=== PATIENT | female | born 1980 | race Caucasian/White ===

== ENCOUNTER 2017-08-23 11:46 | Emergency (ER) | END 2017-08-23 12:53 | disposition home or self-care (01) ==

== ENCOUNTER 2018-06-27 18:45 | Inpatient (IN) | payer MEDICAID ==
[~2018-06-27] VITALS: Ht 170.2 cm; Wt 97.0 kg
[~2018-06-27 18:45] MED LIST: CIPR500T4 PO; PREN1TAB49
[2018-06-27 19:46] VITALS: BP 108/67; PULSE 81; RESP 18
[2018-06-27 19:48] VITALS: Ht 170.2 cm; Wt 97.0 kg
[2018-06-27] MEDS ORDERED: URSO300C21 PO (19:54)
[2018-06-27] MEDS ORDERED: DIPH25CA42 PO (19:55)
[2018-06-27] MEDS ORDERED: ACETAMINOPHEN 325 MG TAB PO PRN (20:30)
[2018-06-27] MEDS ORDERED: HYDROCORTISONE 1% 28.35 GM OINT TOP PRN (20:30)
--- NOTE | 2018-06-27 21:05 | PREOPHP ---
DATE OF ADMISSION: 06/27/2018 HISTORY OF PRESENT ILLNESS: Ms. Brooke Adams is a 38-year-old 4, para 3, EDC 07/28/2018 intrauterine at 35 weeks and 4 days gestational age, [facility] delivered at 36 weeks secondary to cholestasis of . Currently, the patient has m ild generalized itching. She declines any nausea, vomiting, shortness of breath, visual change, or e pigastric pain. Her vital signs are stable. Her care took place at [facility]. PAST MEDICAL HISTORY: None. MEDICATIONS: vitamins, Actigall, Benadryl, hydrocortisone cream 1%. PAST SURGICAL HISTORY: None. OBSTETRIC HISTORY: x3 vaginal deliveries. GYNECOLOGIC HISTORY: 12, regular 3 to 4 days. Denies any sexually transmitted infections. Sexually active with 1 partner. SOCIAL HISTORY: Denies any smoking, drugs or alcohol. FAMILY HISTORY: None. REVIEW OF SYSTEMS: All within normal except for history of present illness. PHYSICAL EXAMINATION: HEENT: Within normal. LUNGS: CTA bilateral. CARDIOVASCULAR: S1, S2, regular rhythm. ABDOMEN: Gravid, nontender. Negative CVA bilateral. EXTREMITIES: Negative edema. No calf tenderness. PELVIC: Vaginal exam deferred. heart tracing category 1. SIGNIFICANT LABORATORIES: Total bile acids 267.8, result from 06/25/2018. ASSESSMENT: Intrauterine at 35 weeks and 4 days gestational age with cholestasis of pregna ncy. PLAN: The patient's evaluation was discussed with Dr. Jo, who recommended delivery at 36 weeks an d continuous monitoring inhouse until delivery. Plan is to give a steroid treatment for lung maturity, continue Actigall, biophysical profile, EFW and presentation. Dictated By: ROMULO ESPINO/DAMIEN Conf#: [id number] DID#: [id number]
[2018-06-27] MEDS: BETAMET NA PHOS/AC(6 MG/ML) 2 ML INJ SYG IM SCH (22:00)
[2018-06-27] MEDS: LACTATED RINGER'S 1,000 ML IV SCH (22:31)
[2018-06-27] MEDS: URSODIOL 300 MG CAP PO SCH (23:33)
[2018-06-27] MEDS: DIPHENHYDRAMINE 25 MG CAP PO SCH (23:55)
[2018-06-28] MEDS: LACTATED RINGER'S 1,000 ML IV SCH ×3 (03:13→21:08)
--- NOTE | 2018-06-28 05:29 | CONS ---
DATE OF ADMISSION: 06/27/2018 DATE OF CONSULTATION: 06/27/2018 I was notified by Dr. Pena around 5:00 about this patient. She was 35 weeks and 4 days on 06/27 and her bile acids have just been resulted with the total bile acid of 267. He mentioned liver function tests are normal and apparently the bile acids have been done fasting. This is a very, arminda y high level of bile acid. I do recommend in-house management and continue with the Actigall. Alonso nuous heart tone monitoring. Delivery at 36 weeks unless there is any evidence of nonreassurin g heart tone. The reason for delivery at 36 weeks is that also severe cholestasis, which incre ases the risk of intrauterine demise. Dictated By: BRENDAN ALEXIS MD ST/NTS Conf#: [id number] DID#: [id number] CC: ROMULO PENA MD;*EndCC*
[2018-06-28] MEDS: DIPHENHYDRAMINE 25 MG CAP PO SCH ×3 (05:56→17:49)
[2018-06-28] MEDS: PRENATAL VITAMIN PO SCH (08:18)
[2018-06-28] MEDS: FERROUS SULFATE (EC) 325 MG TAB PO SCH (08:18)
[2018-06-28] MEDS: URSODIOL 300 MG CAP PO SCH ×3 (08:18→21:07)
[2018-06-28] MEDS: BETAMET NA PHOS/AC(6 MG/ML) 2 ML INJ SYG IM SCH (22:21)
[2018-06-29] MEDS: DIPHENHYDRAMINE 25 MG CAP PO SCH ×5 (00:09→23:49)
[2018-06-29] MEDS: LACTATED RINGER'S 1,000 ML IV SCH ×3 (05:13→22:01)
[2018-06-29] MEDS: FERROUS SULFATE (EC) 325 MG TAB PO SCH (08:58)
[2018-06-29] MEDS: URSODIOL 300 MG CAP PO SCH ×3 (08:58→22:00)
[2018-06-29] MEDS: PRENATAL VITAMIN PO SCH (08:58)
[2018-06-30] MEDS: DIPHENHYDRAMINE 25 MG CAP PO SCH ×3 (05:57→19:31)
[2018-06-30] MEDS: LACTATED RINGER'S 1,000 ML IV SCH ×2 (05:58→15:24)
[2018-06-30] MEDS ORDERED: OXYTOCIN 30 UNITS/LR 500 ML BAG IV ONE (07:00)
[2018-06-30] MEDS: PRENATAL VITAMIN PO SCH (07:53)
[2018-06-30] MEDS: URSODIOL 300 MG CAP PO SCH ×3 (07:53→22:09)
[2018-06-30] MEDS: FERROUS SULFATE (EC) 325 MG TAB PO SCH (07:54)
[2018-06-30] MEDS ORDERED: OXYTOCIN 30 UNITS/LR 500 ML IV PRN ×2 (09:00→20:00)
[2018-06-30] MEDS ORDERED: MISOPROSTOL 200 MCG TAB PR PRN ×2 (09:00→20:00)
[2018-06-30] MEDS ORDERED: METHYLERGONOVINE 0.2 MG INJ IM PRN ×2 (09:00→20:00)
[2018-06-30] MEDS ORDERED: MISOPROSTOL 50 MCG CAPSULE PO SCH (09:00)
[2018-06-30] MEDS ORDERED: CARBOPROST 250 MCG INJ IM PRN ×2 (09:00→20:00)
[2018-06-30] MEDS ORDERED: OXYTOCIN 30 UNITS/LR 500 ML IV SCH ×2 (09:00)
[2018-06-30] MEDS ORDERED: LIDOCAINE 1% (MPF) 30 ML INJ INJ PRN (09:00)
[2018-06-30] MEDS ORDERED: BUTORPHANOL 2 MG INJ IV PRN (09:00)
[2018-06-30] MEDS ORDERED: IBUPROFEN 600 MG TAB PO PRN (09:00)
--- NOTE | 2018-06-30 10:15 | QN ---
Documentation Comment patient seen and evaluated no complaints vs stable afebrile ab soft nt gravid extremity no edema no calf tenderness fhr cat 1 sono: transverse lie a/Intrauterine at 36 weeks and days gestational age with cholestasis of , malpresentation p/ keep patient npo schedule for CD today ROMULO PENA MD Jun 30, 2018 10:15
[2018-06-30] MEDS ORDERED: CEFAZOLIN 2 GM/50 ML (PMX) 50 ML IVPB ONE (11:30)
--- NOTE | 2018-06-30 17:40 | PREAC ---
Date/Time of Note Date/Time of Note DATE: 06/30/18 TIME: 17:38 Anesthesia Eval and Record Evaluation Time Pre-Procedure Interview DATE: 06/30/18 TIME: 17:38 Age 38 Sex female NPO: 8 hrs Preoperative diagnosis IUP Planned procedure Csection Past Medical History Past Medical History: None Surgery & Anesthesia Issues No known issue Meds Anticoagulation: No Beta Ninoska within 24 hr: No Reason Beta Ninoska not given: Pt. not on B-Ninoska Active Scripts Ciprofloxacin Hcl* (Ciprofloxacin Hcl*) 500 Mg Tablet, 500 MG PO BID for 10 Days, TAB Prov:RK FREEMAN PA-C 08/23/17 Reported Medications Diphenhydramine Hcl (Banophen) 25 Mg Capsule, 25 MG PO Q6 for itching, CAP 06/27/18 Ursodiol* (Actigall*) 300 Mg Cap, 300 MG PO TID, #90 CAP 06/27/18 Vits W-Ca,Fe,Fa(<1MG) () 1 Tab Tablet 12/15/09 Current Medications Lactated Ringer's 1,000 ml @ 125 mls/hr Q8H IV Last administered on 06/30/18at 15:24; Admin Dose 125 MLS/HR; Start 06/27/18 at 20:24 Prenat Multivit/ Callisthenics Instructor/Iron/Folic Ac () 1 tab DAILY PO Last administered on 06/30/18at 07:53; Admin Dose 1 TAB; Start 06/28/18 at 09:00 Ferrous Sulfate (Ferrous Sulfate (Ec)) 325 mg DAILY PO Last administered on 06/30/18at 07:54; Admin Dose 325 MG; Start 06/28/18 at 09:00 Acetaminophen (Tylenol Tab) 650 mg Q4H PRN PO .PAIN OR TEMP; Start 06/27/18 at 20:30 Diphenhydramine HCl (Benadryl) 25 mg Q6 PO Last administered on 06/30/18at 05:57; Admin Dose 25 MG; Start 06/28/18 at 00:00 Ursodiol (Actigall) 300 mg TID PO Last administered on 06/30/18at 07:53; Admin Dose 300 MG; Start 06/27/18 at 22:00 Hydrocortisone (Hydrocortisone 1% Oint) 1 applic Q4 PRN TOP ITCHING Last administered on 06/27/18at 23:34; Admin Dose 1 APPLIC; Start 06/27/18 at 20:30 Butorphanol Tartrate (Stadol) 2 mg Q2H PRN IV .PAIN; Start 06/30/18 at 09:00 Lidocaine (Xylocaine 1% (Mpf)) 30 ml ONCE PRN INJ .EPISIOTOMY; Start 06/30/18 at 09:00 Oxytocin/Lactated Ringer's 500 ml @ 500 mls/hr ONCE POST IV ; Start 06/16 08/03 at 09:00 Oxytocin/Lactated Ringer's 500 ml @ 125 mls/hr POST IV ; Start 06/30/18 at 09:00 Ibuprofen (Motrin) 600 mg ONCE PRN PO .PAIN 1-5; Start 06/30/18 at 09:00 Oxytocin/Lactated Ringer's 500 ml @ 0 mls/hr ONCE PRN IV .VAGINAL BLEEDING; Start 06/30/18 at 09:00 Methylergonovine Maleate (Methergine) 0.2 mg ONCE PRN IM .VAGINAL BLEEDING; Start 06/30/18 at 09:00 Carboprost Tromethamine (Hemabate) 250 mcg ONCE PRN IM .VAGINAL BLEEDING; Start 06/30/18 at 09:00 Misoprostol (Cytotec) 1,000 mcg ONCE PRN NH .VAGINAL BLEEDING; Start 06/30/18 at 09:00 Meds reviewed: Yes Allergies Coded Allergies: No Known Allergy (Unverified , 06/29/18) Allergies Reviewed: Yes Labs/Studies Labs Reviewed: Reviewed by anesthesiologist Result Diagram: 06/30/18 1042 06/30/18 1042 Laboratory Tests 06/30/18 10:42 Blood Bank Test 06/30/18 10:39 Antibody Screen NEGATIVE Blood Type A POSITIVE Rh Immune Globulin Candidate NO test: Positive Studies: ECG Pre-procedure Exam Last vitals Vital Signs Date Temp Pulse Resp B/P (MAP) Pulse Ox O2 O2 Flow FiO2 Time Delivery Rate 06/27/18 99.1 81 18 108/67 Room Air 19:46 (81) Airway: Adequate mouth opening, Adequate thyromental dist Mallampati: Mallampati II Teeth: Normal Lung: Normal Heart: Normal ASA Physical Status ASA physical status: 2 Emergency: None Planned Anesthetic Neuraxial: Spinal Planned Pain Management Sub-arachniod narcotics, Parenteral pain med Pre-operative Attestations Prior to commencing anesthesia and surgery, the patient was re-evaluated, there was verification of: *The patient's identity *The results of appropriate recent lab work and preoperative vital signs *The above evaluation not changing prior to induction *Anesthetic plan, risk benefits, alternative and complications discussed with patient/family; questions answered; patient/family understands, accepts and wishes to proceed. BONI TAFOYA MD Jun 30, 2018 17:40
[2018-06-30] MEDS ORDERED: PHENYLephrine 10 MG INJ ONE (17:42)
[2018-06-30] MEDS ORDERED: OXYTOCIN 10 UNIT INJ ONE (17:42)
[2018-06-30] MEDS ORDERED: ONDANSETRON 4 MG INJ ONE ×2 (17:42→18:24)
[2018-06-30] MEDS ORDERED: morphine SULFATE/PF (10 MG/10 ML) INJ ONE (17:42)
--- NOTE | 2018-06-30 17:43 | HPN ---
Date/Time of Note Date/Time of Note DATE: 06/30/18 TIME: 17:42 Interval H&P Admission Note Pt. seen H&P reviewed: Systems changes noted below Intrauterine at 36 weeks and days gestational age with cholestasis of , malpresentation, desire CD with btl r/b/a explained all question answered ROMULO PENA MD Jun 30, 2018 17:42
--- NOTE | 2018-06-30 18:38 | OPPN ---
Date/Time of Note Date/Time of Note DATE: 06/30/18 TIME: 18:35 Operative Report Planned Procedure Procedure date Jun 30, 2018 Procedure(s) primary low transverse CD, wit bilateral tubal salpingectomy Performed by see signature line Facility Designer: VIKASH HOLLAND M.D. 2nd Facility Designer none Anesthesiologist: BONI TAFOYA MD Pre-procedure diagnosis Intrauterine at 36 weeks and days gestational age with cholestasis of , malpresentation, desire CD with btl [id number] Anesthesia Type: Xjfur5c spinal Post-Procedure Post-procedure diagnosis same Findings a viable male 8/9 weight 2,745 grams, transverse presentation (head towards left, back up), normal uterus tubes and ovaries Estimated Blood Loss: 500 - 600 mls (500) Specimen(s) left and right fallopian tubes Grafts/Implant(s) none Complication(s) none ROMULO PENA MD Jun 30, 2018 18:38
[2018-06-30] MEDS ORDERED: morphine 2 MG INJ IV PRN (19:00)
[2018-06-30] MEDS ORDERED: ONDANSETRON 4 MG INJ IV PRN (19:00)
[2018-06-30] MEDS ORDERED: DIPHENHYDRAMINE 50 MG INJ IV PRN (19:00)
[2018-06-30] MEDS ORDERED: KETOROLAC 30 MG INJ IV PRN (19:00)
[2018-06-30] MEDS ORDERED: NALOXONE (0.4 MG/ML) INJ IV PRN (19:00)
--- NOTE | 2018-06-30 19:00 | PAC ---
Date/Time of Note Date/Time of Note DATE: 06/30/18 TIME: 19:00 Post-Anesthesia Notes Post-Anesthesia Note Last documented vital signs Vital Signs Date Temp Pulse Resp B/P (MAP) Pulse Ox O2 O2 Flow FiO2 Time Delivery Rate 06/27/18 99.1 81 18 108/67 Room Air 19:46 (81) Activity: WNL Respiratory function: WNL Cardiovascular function: WNL Mental status: Baseline Pain reasonably controlled: Yes Hydration appropriate: Yes Nausea/Vomiting absent: Yes Comments BP:122/56, P:88, Spo2:100%, T:98,8 BONI TAFOYA MD Jun 30, 2018 19:00
[2018-06-30] MEDS ORDERED: LANOLIN HPA 1 PKT TOP PRN (20:00)
[2018-06-30] MEDS ORDERED: OXYCODONE/ACETAMINOPHEN (5/325) TAB PO PRN (20:00)
[2018-06-30] MEDS ORDERED: NACL 0.9% 3 ML SYG IV SCH (20:00)
[2018-06-30 21:10] VITALS: BP 116/56; PULSE 98; RESP 18
[2018-06-30] MEDS: OXYTOCIN 30 UNITS/LR 500 ML IV SCH (22:09)
[2018-07-01] MEDS: OXYTOCIN 30 UNITS/LR 500 ML IV SCH (00:04)
[2018-07-01] MEDS: CEFAZOLIN 2 GM/50 ML (PMX) 50 ML IVPB SCH ×3 (01:57→17:52)
[2018-07-01 03:50] VITALS: BP 102/59; PULSE 59; RESP 17
[2018-07-01] MEDS: IBUPROFEN 600 MG TAB PO SCH ×5 (05:08→23:53)
[2018-07-01 08:00] VITALS: BP 104/66; PULSE 82; RESP 18
[2018-07-01] MEDS: URSODIOL 300 MG CAP PO SCH ×3 (09:07→20:55)
--- NOTE | 2018-07-01 11:04 | QN ---
Documentation Comment progress note pod 1 patient seen and evaluated no complaints cunha clear vs stable afebrile ab dressing clean/ dry no distention nt extremity no edema no calf tenderness a sp cd with btl pod 1 stable afebrile p/ iron supplement encourage ambulation ROMULO PENA MD Jul 01, 2018 11:04
[2018-07-01 12:15] VITALS: BP 110/70; PULSE 68; RESP 18
[2018-07-01] MEDS: LACTATED RINGER'S 1,000 ML IV SCH ×3 (12:24→22:30)
--- NOTE | 2018-07-01 14:56 | OPR ---
DATE OF OPERATION: 06/30/2018 PREOPERATIVE DIAGNOSIS: Intrauterine at 36 weeks' gestation age with cholestasis of pregna ncy, malpresentation, desires a delivery with bilateral tubal sterilization. POSTOPERATIVE DIAGNOSES: Intrauterine at 36 weeks' gestational age with cholestasis of pre gnancy, malpresentation, desires a delivery with bilateral tubal sterilization. OPERATION PERFORMED: Repeat low transverse delivery with bilateral tubal salpingectomy. SURGEON: Jorge Christensen MD BUILDER'S LABOURER: Elliot Ramirez MD ANESTHESIA: Spinal. COMPLICATIONS: None. ESTIMATED BLOOD LOSS: 500 mL. PATHOLOGY: Right and left fallopian tube. FINDINGS: A viable male, 8 and 9 respectively at 1 and 5 minutes, weight 2745 grams, transvers e presentation. head toward the left with back up. Normal uterus, tubes and ovaries. DESCRIPTION OF PROCEDURE: After explaining the risks, benefits and alternatives, the patient had con sent signed in chart, the patient was taken to the operating room where spinal anesthesia was found t o be adequate. She was then prepared and draped in normal sterile fashion in dorsal position with a leftward tilt. A Pfannenstiel skin incision was then made with a scalpel and carried to the underlyi ng fascia. The fascia was incised in the midline. Incision was extended laterally with Martin scissor s. The superior aspect of the fascial incision was grasped with curved clamps, elevated and the unde rlying rectus muscles dissected off bluntly. Attention was then turned to the inferior aspect of the incision which in similar fashion was grasped, tented up with curved clamps and the rectus muscle di ssected off bluntly. The rectus was in midline, peritoneum identified, tented up, and mariam ply with Metzenbaum scissors. This incision was extended superiorly and inferiorly with good visuali zation of the bladder. The bladder blade was then inserted and the vesicouterine identified, grasped with pickups and sharply with Metzenbaum scissors. This incision was extended laterally and a bladd er flap created digitally. The bladder blade was then reinserted and lower segment incised in transv erse fashion with the scalpel. Uterine incision was extended laterally. The bladder blade was remov ed and the 's head delivered atraumatically. The nose and mouth were suctioned, cord clamped a nd cut. The infant was handed off to waiting nuclear chemistry technician. The placenta was then removed. The uter us was exteriorized and cleared of all clots and debris. The uterine incision was repaired with 1-0 chromic in a running locked fashion. A second set. A second layer of same suture was used for imbri cation obtaining excellent hemostasis. At this point, using a [place], left fallopian tube was grasped and excised with x2 plain gut. Good hemostasis was noted. Similarly, the other fallopian tube was removed. The uterus was returned to t he abdomen. The gutters were cleared of all clots. The peritoneum and rectus abdominis muscles were reapproximated with 2-0 Vicryl. The fascia was reapproximated with 0 Vicryl in a running fashion. The subcutaneous tissue was reapproximated with 2-0 plain gut in a running fashion. The skin was josé manuel sed with absorbable roque. The patient tolerated procedure well. All counts were correct. The pa tient was taken to PACU in stable condition. Dictated By: JORGE ESPINO/DAMIEN Conf#: [id number] DID#: [id number]
[2018-07-01 16:00] VITALS: BP 108/62; PULSE 71; RESP 18
[2018-07-01 20:00] VITALS: BP 116/63; PULSE 80; RESP 19
[2018-07-01] MEDS: SENNA/DOCUSATE NA (8.6MG/50MG) TAB PO PRN (20:55)
[2018-07-01] MEDS: FERROUS SULFATE (EC) 325 MG TAB PO SCH (20:55)
[2018-07-01] MEDS: OXYCODONE/ACETAMINOPHEN (5/325) TAB PO PRN (20:56)
[2018-07-02 03:45] VITALS: BP 115/69; PULSE 81; RESP 19
[2018-07-02] MEDS: IBUPROFEN 600 MG TAB PO SCH ×3 (05:35→17:35)
[2018-07-02] MEDS: LACTATED RINGER'S 1,000 ML IV SCH ×2 (06:23→14:30)
[2018-07-02 08:45] VITALS: BP 110/72; PULSE 57; RESP 17
[2018-07-02] MEDS: URSODIOL 300 MG CAP PO SCH ×3 (08:59→20:55)
[2018-07-02] MEDS: FERROUS SULFATE (EC) 325 MG TAB PO SCH ×2 (08:59→20:55)
[2018-07-02] MEDS ORDERED: DIPHENHYDRAMINE 25 MG CAP PO PRN (10:00)
[2018-07-02] MEDS: OXYCODONE/ACETAMINOPHEN (5/325) TAB PO PRN (11:56)
[2018-07-02 15:20] VITALS: BP 109/67; PULSE 65; RESP 17
[2018-07-02 20:55] VITALS: BP 116/66; PULSE 77; RESP 18
[2018-07-03] MEDS: IBUPROFEN 600 MG TAB PO SCH ×3 (00:04→11:53)
[2018-07-03 04:00] VITALS: BP 106/64; PULSE 74; RESP 18
[2018-07-03 08:20] VITALS: BP 120/68; PULSE 71; RESP 17
[2018-07-03] MEDS ORDERED: DIPHTH/TET/ACEL PERTUSS (ADULT) 0.5 ML VIAL IM* ONE (09:00)
[2018-07-03] MEDS: URSODIOL 300 MG CAP PO SCH ×2 (10:31→14:20)
[2018-07-03] MEDS: FERROUS SULFATE (EC) 325 MG TAB PO SCH (10:31)
[2018-07-03] MEDS: SENNA/DOCUSATE NA (8.6MG/50MG) TAB PO PRN (10:31)
--- NOTE | 2018-07-03 11:38 | PD.PPDC ---
DIRT BIKE RACER Discharge Instruction Condition Uiypd1Gl Patient Condition: Mhvuj0n Good Diet Ftgxw1Ia Diet: Fnhps5r Resume Regular Diet Activity/Restrictions Jiyac7Li Activity: Qqwsh1v Normal Activity May Shower [id number] Restrictions: Lwwgj9i No Exercising No Lifting No Driving No Sexual Activity Nothing in the Vagina No [place] No Tampons, douche Follow-up Follow-up with Physician: 2, Week/Weeks Return to clinic for Wfcdc7Iy RAW MATERIAL HANDLER Instructions: Hunot1m Fever greater than 101 Chills Worsening abdominal pain Excessive Vaginal Bleeding More than 2 pads per hour Unable to tolerate diet Dyglb6Jt OB Instructions: [place]3c Breast Tenderness Depression Blurried Vision Headache Ojxpa1Sp Surgical Instructions: Yqidk1y Incisional Drainage Incisional Redness ROMULO PENA MD Jul 03, 2018 11:38
--- NOTE | 2018-07-03 21:04 | DS ---
DATE OF ADMISSION: 06/27/2018 DATE OF DISCHARGE: 07/03/2018 PRIMARY DIAGNOSIS: Intrauterine at 36 weeks' gestational age with cholestasis of , malpresentation, desires delivery with bilateral tubal sterilization. PROCEDURE: Repeat low transverse delivery with bilateral tubal salpingectomy. CONDITION ON DISCHARGE: Stable. ACTIVITY: None per vagina, no heavy lifting x6 weeks. DIET: Regular. MEDICATIONS ON DISCHARGE: Motrin, iron and Colace. Continue Actigall. DISCHARGE SUMMARY: The patient underwent a repeat low transverse delivery with bilateral tu bal sterilization on 06/30/2018. She had a viable male, 8 and 9 respectively at 1 and 5 minute s, weight 2745 grams. She had an uneventful postop day 1, 2, and 3. Her incision is clean, dry, and intact. She is ambulating, tolerating diet, positive flatulence, positive bowel movement. She will be discharged home today and follow up in the clinic in 2 weeks for /postop care. Dictated By: ROMULO ESPINO/DAMIEN Conf#: [id number] DID#: [id number] CC: VERO LOCKE MD; ROMULO PENA MD;*EndCC*
--- NOTE | 2018-07-04 16:09 | DELSUM ---
Delivery Summary A-C Datetime Report Generated by CPN: 07/04/2018 16:09 DELIVERY PERSONNEL Marine Steam Fitter Helper: Edith Munoz MATERNAL INFORMATION Delivery Anesthesia: Spinal Medications in Delivery: SEE ANESTHESIA NOTE Delivery QBL (ml): 600 Placenta Cultured: No Maternal Complications: Other Other Maternal Complications: CHOLESTASIS, TRANSVERSE BABY RN Comments: elevated bile acids LABOR SUMMARY EDC: 07/28/2018 00:00 No. Babies in Womb: 1 Attempted: No Labor Anesthesia: None LABOR INFORMATION Reason for Induction: Other Reason for Induction- Other: elevated bile acids Oxytocin: N/A Group B Beta Strep: Negative Antibiotics # of Doses: 1 Antibiotics Time of Last Dose: 06/30/2018 17:45 Steroids Given: Full Course Reason Steroids Not Administered: Not Applicable MEMBRANES Membranes Rupture Method: Artificial Rupture of Membranes: 06/30/2018 18:09 Length of Rupture (hr): 0.00 Amniotic Fluid Color: Clear Amniotic Fluid Amount: Small Amniotic Fluid Odor: Normal STAGES OF LABOR Stage 3 hr: 0 Stage 3 min: 1 CSECTION DELIVERY Primary Indication: Trans/Complex Presentatio CSection Urgency: Non Elective CSection Incidence: Primary Labor: No Labor Elective: Nonelective CSection Incision: Lower Uterine Transverse Sterilization Procedure: Taqueria BABY A INFORMATION Infant Delivery Date/Time: 06/30/2018 18:09 Method of Delivery: Born in Route : No : N/A Forceps: N/A Vacuum Extraction: N/A Shoulder Dystocia : No SHOULDER DYSTOCIA BABY A Infant Delivery Date/Time: 06/30/2018 18:09 PRESENTATION/POSITION BABY A Presentation: Compound Cephalic Presentation: N/A Vertex Position: N/A Breech Presentation: N/A PLACENTA INFORMATION BABY A Placenta Delivery Time : 06/30/2018 18:10 Placenta Method of Delivery: Spontaneous Placenta Status: Delivered SCORES BABY A Heart Rate 1 min: >100 bpm Resp Effort 1 min: Good Cry Reflex Irritability 1 min: Cough/Sneeze/Pulls Away Muscle Tone 1 min: Active Motion Color 1 min: Blue/Pale Resuscitation Effort 1 min: Tactile Stimulation SCORE 1 MIN: 8 Heart Rate 5 min: >100 bpm Resp Effort 5 min: Good Cry Reflex Irritability 5 min: Cough/Sneeze/Pulls Away Muscle Tone 5 min: Active Motion Color 5 min: Body [place], Extremit Blue Resuscitation Effort 5 min: Tactile Stimulation SCORE 5 MIN: 9 INFORMATION BABY A Gestational Age at Delivery: 36.0 Gestational Status: Late - 34- 36.6 Weeks Outcome : Liveborn Infant Condition : Stable Sex: Male IDENTIFICATION/MEDS BABY A ID Band Number: [id number] ID Band Location: Right Leg; Left Arm Sensor Applied: Yes Sensor Number: [id number] Sensor Location : Cord Clamp Vitamin K Given : Not Given Erythromycin Given: Not Given WEIGHT/LENGTH BABY A Infant Birthweight (gm): 2745 Weight (lb): 6 Weight (oz): 1 Infant Length (in): 19.50 Length (cm): 49.53 CORD INFORMATION BABY A No. Cord Vessels: 3 Nuchal Cord : N/A Cord Blood Taken: Yes Suction: Mouth; Nose (Annotations: Data stored by [facility] on behalf of user) ASSESSMENT BABY A Infant Complications: None Physical Findings at Delivery: Within Normal Limits Physical Findings- Other: at 1854 RT MARIEL bedside to evaluate Respirations: Appears Normal Kidney Puller/ALS Called : Yes Care By: RT Transferred To: Remains with Mother
== END 2018-07-03 16:09 | disposition home or self-care (01) | DRG 783 ==
LOC: L-D 18:45 → PP1 06-30 21:13
PROVIDERS: ADMIT Obstetrics & Gynecology; ATTEND Obstetrics & Gynecology
PROC: 0UB70ZZ Excision of Bilateral Fallopian Tubes, Open Approach (ICD-10-PCS; 2018-06-30)
PROC: 10D00Z1 Extraction of Products of Conception, Low, Open Approach (ICD-10-PCS; principal; 2018-06-30 18:00)
DX: O26.62 Liver and biliary tract disorders in childbirth (principal); K83.1 Obstruction of bile duct; Z3A.36 36 weeks gestation of pregnancy; Z37.0 Single live birth; Z30.2 Encounter for sterilization; O32.2XX0 Maternal care for transverse and oblique lie, not applicable or unspecified
CPT/HCPCS: 76815; 76818; 80053; 85025; 85610; 85730; 86592; 86850; 86900; 86901; 87340; 88302; 99464; J0690; J0702; J1200; J1885; J2274; J2405; J2590; J7120